=== PATIENT | male | born 1985 | race American Indian/Alaskan Native ===

== ENCOUNTER 2020-05-20 08:01 | Emergency (ER) | payer SELFPAY ==
[2020-05-20] MEDS ORDERED: IPRATROPIUM/ALBUTEROL SULFATE 3 ML AMPUL.NEB IH ONE (08:51)
[2020-05-20] MEDS ORDERED: methylPREDNISolone Sod Succinate 125 MG/2 ML INJ IV ONE (08:51)
[2020-05-20] MEDS ORDERED: ASPIRIN 325 MG TAB PO ONE (09:07)
--- NOTE | 2020-05-20 09:13 | Event Note ---
ED Screening Note Date of service: 05/20/20 Time: 09:09 ED Screening Note: 34-year-old -[place] male with a past medical history of prediabetes, GERD, and tobacco use presents to the ER today complaining of chest pain. Onset last night while sitting AND 1 HR after eating. Started the right side on the right side of his chest, but this morning pain radiating to his back, and into his left chest. Pain is intermittent. Scribes it as tight, "like something stuck". he states nothing seems to make it worse or better. He denies any shortness of breath, cough, nausea, vomiting abdominal pain or diaphoresis. Pain currently a 1 out of 10. 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 Denies any calf pain or lower extremity swelling He also reports taking Vivitrol which is a once a month injection as part of a detox program from opiates and alcohol This initial assessment/diagnostic orders/clinical plan/treatment(s) is/are subject to change based on patients health status, clinical progression and re- assessment by fellow clinical providers in the ED. Further treatment and workup at subsequent clinical providers discretion. Patient/guardian urged not to elope from the ED as their condition may be serious if not clinically assessed and managed. 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
[2020-05-20 09:40] LABS: Basophils % (Auto) 0.5 % (0.0-1.8); Eosinophils # (Auto) 0.4 K/mm3 (0.0-0.4); Eosinophils % (Auto) 4.8 % (0.0-4.3); Hematocrit 45.3 % (35.5-45.6); Hemoglobin 15.4 gm/dl (11.8-15.2); Lymphocytes # (Auto) 1.9 K/mm3 (1.2-5.4); Lymphocytes % (Auto) 21.8 % (13.4-35.0); Mean Corpuscular HGB Conc 34 % (32-34); Mean Corpuscular Volume 89 fl (84-94); Monocytes # (Auto) 0.6 K/mm3 (0.0-0.8); Monocytes % (Auto) 6.5 % (0.0-7.3); Platelet Count 225 K/mm3 (140-440); Red Blood Count 5.11 M/mm3 (3.65-5.03); Red Cell Distribution Width 14.2 % (13.2-15.2)
[2020-05-20 09:51] LABS: Alanine Aminotransferase 30 units/L (7-56); Albumin 4.3 g/dL (3.9-5); BUN/Creatinine Ratio 14; Blood Urea Nitrogen 13 mg/dL (9-20); Calcium 9.8 mg/dL (8.4-10.2); Hemolysis Index 13
--- NOTE | 2020-05-20 12:15 | Emergency Department Report ---
ED Chest Pain HPI - General Chief Complaint: Chest Pain Stated Complaint: CHEST PAINS Time Seen by Provider: 05/20/20 10:42 Source: patient Mode of arrival: Ambulatory Limitations: No Limitations - History of Present Illness Initial Comments: 34-year-old male presents to the hospital with a past medical history of prediabetes, GERD, tobacco use, and alcohol and opioid abuse currently in a detox program receiving q. monthly Vivitrol injections presents to the hospital with complaints of intermittent chest pain since last night. Pain started 1 hours after eating. Started in a right-sided chest then this morning moved to the left side of his chest into his right posterior thorax. Pain described as sharp and tight, intermittent, without aggravating or alleviating factors. Denies shortness of breath, nausea, vomiting, cough, abdominal pain, diap horesis, loss of sense of taste or smell, calf tenderness, leg edema, or history of PE/DVT. 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 Denies family history of CAD or daily aspirin use Severity scale (0 -10): 0 - Related Data Previous Rx's Medication Instructions Recorded Last Taken Type Famotidine [Pepcid] 20 mg PO BID #20 tablet 05/20/20 Unknown Rx Ibuprofen [Motrin] 600 mg PO Q8H PRN #20 tablet 05/20/20 Unknown Rx Mag Hydrox/Aluminum Hyd/Simeth 20 ml PO QID PRN #1 bottle 05/20/20 Unknown Rx [Maalox Advanced Suspension] Allergies Allergy/AdvReac Type Severity Reaction Status Date / Time No Known Allergies Allergy Unverified 05/20/20 08:08 Heart Score - HEART Score History: Slightly suspicious EKG: Normal Age: < 45 Risk factors: 1-2 risk factors Troponin: < normal limit HEART Score: 1 ED Review of Systems ROS: Stated complaint: CHEST PAINS Other details as noted in HPI Comment: All other systems reviewed and negative ED Past Medical Hx - Past Medical History Previous Medical History?: No - Surgical History Past Surgical History?: No - Social History Smoking Status: Current Every Day Smoker Substance Use Type: None - Medications Home Medications: Home Medications Medication Instructions Recorded Confirmed Last Taken Type Famotidine [Pepcid] 20 mg PO BID #20 tablet 05/20/20 Unknown Rx Ibuprofen [Motrin] 600 mg PO Q8H PRN #20 tablet 05/20/20 Unknown Rx Mag Hydrox/Aluminum Hyd/Simeth 20 ml PO QID PRN #1 bottle 05/20/20 Unknown Rx [Maalox Advanced Suspension] ED Physical Exam - General Limitations: No Limitations - Other Other exam information: General: No acute distress Head: Atraumatic Eyes: normal appearance ENT: Moist mucous membranes Neck: Normal appearance, no midline tenderness Chest: Clear to auscultation bilaterally, chest wall nontender CV: Regular rate and rhythm Abdomen: Soft, normal bowel sounds, nontender, nondistended, no rebound or guarding Back: Normal inspection Extremity: Normal inspection, full range of motion, no calf tenderness or leg edema Neuro: Alert O x 3, no facial asymmetry, speech clear, no gross motor sensory deficit Psych: Appropriate behavior Skin: No rash ED Course Vital Signs 05/20/20 05/20/20 05/20/20 08:13 11:27 11:30 Temperature 97.6 F 97.7 F Pulse Rate 80 75 Respiratory 18 18 20 Rate Blood Pressure 140/93 Blood Pressure 134/66 [Left] O2 Sat by Pulse 98 97 97 Oximetry EMILY score - Emily Score Age > 65: (0) No Aspirin use within the Past 7 Days: (0) No 3 or more CAD Risk Factors: (0) No 2 or more Angina events in past 24 hrs: (0) No Known CAD with more than 50% Stenosis: (0) No Elevated Cardiac Markers: (0) No ST Deviation Greater than 0.5mm: (0) No EMILY Score: 0 ED Medical Decision Making - Lab Data Result diagrams: 05/20/20 09:08 05/20/20 09:08 Lab Results 05/20/20 05/20/20 05/20/20 Range/Units 09:08 09:08 09:08 WBC 8.9 (4.5-11.0) K/mm3 RBC 5.11 H (3.65-5.03) M/mm3 Hgb 15.4 H (11.8-15.2) gm/dl Hct 45.3 (35.5-45.6) % MCV 89 (84-94) fl MCH 30 (28-32) pg MCHC 34 (32-34) % RDW 14.2 (13.2-15.2) % Plt Count 225 (140-440) K/mm3 Lymph % (Auto) 21.8 (13.4-35.0) % [place]tinger % (Auto) 6.5 (0.0-7.3) % Eos % (Auto) 4.8 H (0.0-4.3) % Baso % (Auto) 0.5 (0.0-1.8) % Lymph # (Auto) 1.9 (1.2-5.4) K/mm3 Hettinger # (Auto) 0.6 (0.0-0.8) K/mm3 Eos # (Auto) 0.4 (0.0-0.4) K/mm3 Baso # (Auto) 0.0 (0.0-0.1) K/mm3 Seg Neutrophils % 66.4 (40.0-70.0) % Seg Neutrophils # 5.9 (1.8-7.7) K/mm3 D-Dimer 259.86 H (0-234) ng/mlDDU Sodium 138 (137-145) mmol/L Potassium 4.2 (3.6-5.0) mmol/L Chloride 101.0 (98-107) mmol/L Carbon Dioxide 30 (22-30) mmol/L Anion Gap 11 mmol/L BUN 13 (9-20) mg/dL Creatinine 0.9 (0.8-1.3) mg/dL Estimated GFR > 60 ml/min BUN/Creatinine Ratio 14 % Glucose 126 H (75-100) mg/dL Calcium 9.8 (8.4-10.2) mg/dL Total Bilirubin 0.30 (0.1-1.2) mg/dL AST 21 (5-40) units/L ALT 30 (7-56) units/L Alkaline Phosphatase 96 (35-129) units/L Troponin T < 0.010 (0.00-0.029) ng/mL Total Protein 7.1 (6.3-8.2) g/dL Albumin 4.3 (3.9-5) g/dL Albumin/Globulin Ratio 1.5 % Lipase 17 (13-60) units/L 05/20/20 Range/Units 12:25 WBC (4.5-11.0) K/mm3 RBC (3.65-5.03) M/mm3 Hgb (11.8-15.2) gm/dl Hct (35.5-45.6) % MCV (84-94) fl MCH (28-32) pg MCHC (32-34) % RDW (13.2-15.2) % Plt Count (140-440) K/mm3 Lymph % (Auto) (13.4-35.0) % [place] % (Auto) (0.0-7.3) % Eos % (Auto) (0.0-4.3) % Baso % (Auto) (0.0-1.8) % Lymph # (Auto) (1.2-5.4) K/mm3 Hettinger # (Auto) (0.0-0.8) K/mm3 Eos # (Auto) (0.0-0.4) K/mm3 Baso # (Auto) (0.0-0.1) K/mm3 Seg Neutrophils % (40.0-70.0) % Seg Neutrophils # (1.8-7.7) K/mm3 D-Dimer (0-234) ng/mlDDU Sodium (137-145) mmol/L Potassium (3.6-5.0) mmol/L Chloride (98-107) mmol/L Carbon Dioxide (22-30) mmol/L Anion Gap mmol/L BUN (9-20) mg/dL Creatinine (0.8-1.3) mg/dL Estimated GFR ml/min BUN/Creatinine Ratio % Glucose (75-100) mg/dL Calcium (8.4-10.2) mg/dL Total Bilirubin (0.1-1.2) mg/dL AST (5-40) units/L ALT (7-56) units/L Alkaline Phosphatase (35-129) units/L Troponin T < 0.010 (0.00-0.029) ng/mL Total Protein (6.3-8.2) g/dL Albumin (3.9-5) g/dL Albumin/Globulin Ratio % Lipase (13-60) units/L - EKG Data -: EKG Interpreted by Mo EKG shows normal: sinus rhythm, ST-T waves Rate: normal - Radiology Data Radiology results: report reviewed CT angio chest INDICATION: MAIN. TECHNIQUE: All CT scans at this location are performed using CT dose reduction for ALARA by means of automated exposure control. 3 plane MIP and 3-D reconstructions were produced COMPARISON: None available. FINDINGS: Mediastinum, km and axillae are negative. Upper abdomen is unremarkable. No pleural fluid. No significant parenchymal disease. No evidence of pulmonary embolus. IMPRESSION: 1. Negative for pulmonary embolus or other acute abnormality. - Medical Decision Making 34-year-old male presents to the hospital planing of bilateral chest pain with radiation to right posterior thorax. Pain is atypical in nature. Vital signs unremarkable. CTA angiogram chest negative for pulmonary embolism or acute abnormality. Patient has troponin negative x2. Patient will be discharged home to take Tylenol Motrin as needed for atypical pain and follow-up with PMD. Patient may also take Pepcid and Maalox as needed for dyspepsia symptoms Critical Care Time: No Critical care attestation.: If time is entered above; I have spent that time in minutes in the direct care of this critically ill patient, excluding procedure time. ED Disposition Clinical Impression: Atypical chest pain Disposition: - TO HOME OR SELFCARE Is pt being admited?: No Condition: Stable Instructions: Chest Pain (ED), Nonspecific Chest Pain, Adult Additional Instructions: Take the medication as prescribed. Follow-up with your doctor or doctor/clinic provided. Return if symptoms worsen as indicated by your discharge instructions. Prescriptions: Mag Hydrox/Aluminum Hyd/Simeth [Maalox Advanced Suspension] 20 ml PO QID PRN #1 bottle PRN Reason: Indigestion Ibuprofen [Motrin] 600 mg PO Q8H PRN #20 tablet PRN Reason: Pain Famotidine [Pepcid] 20 mg PO BID #20 tablet Referrals: PRIMARY CARE, [Primary Care Provider] - 3-5 Days [facility] [Provider Group] - 3-5 Days Time of Disposition: 13:10
--- NOTE | 2020-05-20 12:49 | Cat Scan Report ---
CT angio chest INDICATION: MAIN. TECHNIQUE: All CT scans at this location are performed using CT dose reduction for ALARA by means of automated e xposure control. 3 plane MIP and 3-D reconstructions were produced COMPARISON: None available. FINDINGS: Mediastinum, km and axillae are negative. Upper abdomen is unremarkable. No pleural fluid. No significant parenchymal disease. No evidence of pulmonary embolus. IMPRESSION: 1. Negative for pulmonary embolus or other acute abnormality. Signer Name: Behzad Neves MD Signed: 05/20/2020 12:44 PM Workstation Name: [id number]
[2020-05-20 13:59] VITALS: BP 133/93
== END 2020-05-20 14:00 | disposition home or self-care (01) ==
LOC: ED 08:01
DX: R07.89 Other chest pain (principal); F17.200 Nicotine dependence, unspecified, uncomplicated; Z79.899 Other long term (current) drug therapy
CPT/HCPCS: 36415; 71275; 80053; 83690; 84484; 85025; 85379; 93005; 99284; Q9967